=== PATIENT | female | born 1975 | race Asian ===

== ENCOUNTER 2017-01-20 20:06 | Emergency (ER) | payer SELFPAY ==
[~2017-01-20] VITALS: Ht 162.6 cm; Wt 76.5 kg
[~2017-01-20 20:06] MED LIST: CALC-649 PO; FERR27TA PO; IBUP-1542 PO; PREN1TAB49 PO
[2017-01-20 20:08] VITALS: Ht 162.6 cm; Wt 76.5 kg
--- NOTE | 2017-01-20 21:13 | ERD ---
ER Documentation Chief Complaint Date/Time DATE: 01/20/17 TIME: 21:00 Chief Complaint epigastric pain since this morning HPI 41-year-old female presents emergency department for epigastric pain since this morning. Pain was described as sharp that radiates to her left chest and left arm. A0. LMP was last month. Denies headache, dizziness, blurred vision, neck pain, back pain, nausea, vomiting, urinary symptoms, constipation, diarrhea, recent antibiotic use in the last 3 months, recent exposure to any illness, fever, chills. No known drug allergies. Past medical history of diabetes was diagnosed in 2010 , Gallstones without cholecystectomy. Medication: Denies. Social: Works as a caregiver. Denies smoking, use of alcohol, use of illegal drugs. ROS All systems reviewed and are negative except as per history of present illness. Medications Home Meds Active Scripts Ibuprofen* (Motrin*) 800 Mg Tab, 800 MG PO Q8 Y for PAIN AND OR ELEVATED TEMP, # 15 TAB Prov:PAULILABANNIURKAAR F 01/21/17 Famotidine* (Pepcid*) 20 Mg Tablet, 20 MG PO DAILY for 30 Days, TAB Prov:PAULILABANNIURKAAR F 01/21/17 Ibuprofen* (Motrin*) 600 Mg Tab, 600 MG PO Q6, #30 TAB Prov:CLIFTON GARZA MD 01/02/14 Reported Medications Ferrous Sulfate (Iron) 1 Tab Tablet, 1 TAB PO DAILY 02/24/12 Calcium Carbonate (Calcium) 1 Tab Tablet, 1 TAB PO DAILY 02/24/12 Vits W-Ca,Fe,Fa(<1MG) () 1 Tab Tablet, 1 TAB PO DAILY 02/24/12 Allergies Allergies: Coded Allergies: No Known Allergy (Unverified , 02/24/12) PMhx/Soc Medical and Surgical Hx: pt denies Surgical Hx History of Surgery: No Anesthesia Reaction: No Hx Neurological Disorder: No Hx Respiratory Disorders: No Hx Cardiac Disorders: No Hx Psychiatric Problems: Yes (ADHD) Hx Miscellaneous Medical Probl: No Hx Alcohol Use: No Hx Substance Use: No Hx Tobacco Use: No Smoking Status: Never smoker Physical Exam Vitals Vital Signs Date Time Temp Pulse Resp B/P Pulse Ox O2 Delivery O2 Flow Rate FiO2 01/21/17 01:16 78 18 131/76 99 Room Air 01/20/17 20:08 97.6 91 20 147/95 98 Physical Exam Const: [] Head: Atraumatic Eyes: Normal Conjunctiva ENT: Normal External Ears, Nose and Mouth. Neck: Full range of motion..~ No meningismus. Resp: Clear to auscultation bilaterally Cardio: Regular rate and rhythm, no murmurs Abd: Soft, non distended. Normal bowel sounds. Has epigastric tenderness on palpation. There is no right upper/right lower/left upper/left lower abdominal tenderness on palpation. Negative Rovsing sign. Negative [place] sign. Negative and psoas sign. Able to jump twice without developing right lower abdominal pain. No peritoneal signs. No CVA tenderness. Skin: No petechiae or rashes Back: No midline or flank tenderness Ext: No cyanosis, or edema Neur: Awake and alert Psych: Normal Mood and Affect Result Diagram: 01/20/17211001/20/172110 Results 24 hrs Laboratory Tests Test 01/20/17 21:10 01/20/17 21:11 Urine Color YELLOW Urine Clarity CLEAR Urine pH 5.0 Urine Specific [place] 1.032 Urine Ketones TRACEmg/dL Urine Nitrite NEGATIVEmg/dL Urine Bilirubin NEGATIVEmg/dL Urine Urobilinogen NEGATIVEmg/dL Urine Leukocyte Esterase NEGATIVELeu/ul Urine Hemoglobin NEGATIVEmg/dL Urine Glucose 3+mg/dL Urine Total Protein NEGATIVEmg/dl White Blood Count 10.510^3/ul Red Blood Count 5.2110^6/ul Hemoglobin 15.6g/dl Hematocrit 44.6% Mean Corpuscular Volume 85.6fl Mean Corpuscular Hemoglobin 29.9pg Mean Corpuscular Hemoglobin Concent 35.0g/dl Red Cell Distribution Width 11.5% Platelet Count 52233^3/UL Mean Platelet Volume 10.8fl Neutrophils % 53.6% Lymphocytes % 38.9% Monocytes % 4.6% Eosinophils % 1.7% Basophils % 0.5% Nucleated Red Blood Cells % 0.0/100WBC Neutrophils # 5.710^3/ul Lymphocytes # 4.110^3/ul Monocytes # 0.510^3/ul Eosinophils # 0.210^3/ul Basophils # 0.110^3/ul Nucleated Red Blood Cells # 0.010^3/ul Sodium Level 136mmol/L Potassium Level 4.5mmol/L Chloride Level 100mmol/L Carbon Dioxide Level 25mmol/L Anion Gap 16 Blood Urea Nitrogen 14mg/dl Creatinine 0.62mg/dl Glucose Level 255mg/dl Calcium Level 10.0mg/dl Total Bilirubin 0.3mg/dl Direct Bilirubin 0.00mg/dl Indirect Bilirubin 0.3mg/dl Aspartate Amino Transf (AST/SGOT) 28IU/L Alanine Aminotransferase (ALT/SGPT) 47IU/L Alkaline Phosphatase 108IU/L Troponin I < 0.012ng/ml Total Protein 8.2g/dl Albumin 4.4g/dl Globulin 3.80g/dl Albumin/Globulin Ratio 1.15 Amylase Level 74U/L Lipase 90U/L Procedures/MDM Examination: Please see physical examination. Disease process, medical treatment was explained to the patient and family member. They verbalized understanding and agreed with the diagnostic tests, medical treatment, and follow-up care. Radiology: Abdominal ultrasound: IMPRESSION: 1. Cholelithiasis. 2. Diffuse fatty infiltration of the liver with hepatomegaly. Chest x-ray: IMPRESSION: Mild atelectasis at the left lung base. Blood works: Reviewed. POC urine : Negative. Urinalysis: Reviewed. Treatment: Re-evaluation: Denies headache, dizziness, blurred vision, neck pain, shoulder pain, chest, abdominal pain, nausea, vomiting. There is no right upper/right lower/epigastric/left upper/left lower abdominal tenderness and likely palpation. Negative Rovsing sign. Negative [place] sign. Negative psoas sign. No episode of emesis in the emergency department. No CVA tenderness. No neurovascular deficits. No neurological deficits. Consultation: None. Differential diagnosis: Appendicitis versus cholecystitis versus pancreatitis versus diverticulitis versus diabetic ketoacidosis versus nephrolithiasis versus gastritis versus urinary tract infection Medical decision makin-year-old female presents emergency department for epigastric pain since this morning. Pain was described as sharp that radiates to her left chest and left arm. A0. LMP was last month. Patient's complaint, patient's history about her complaint, my physical findings, diagnostic test results, I consistent with my final diagnosis of cholelithiasis, hyperglycemia. Medications prescribed are the following: Pepcid. Motrin. Patient and family member are made aware of the side effects and adverse reactions of the medications prescribed. Instructed on when to seek emergent and medical attention in case allergic/anaphylactic reactions or severe side effects and or adverse reactions to medications. Patient and family member verbalized understanding. Patient instructed Instructed to follow-up with his PCP in 24-48 hours. Instructed to Call 911 for chest pain, shortness of breath. Advised to come back here in ED as soon as possible for severity of symptoms which includes but not limited to: any new symptoms; shortness of breath/difficulty of breathing; cardiovascular changes; severe gastrointestinal symptoms; signs and symptoms of bleeding and or infection; signs of compartment syndrome/neurovascular changes; neurological changes/deficits. Patient and family member verbalized understanding. Upon discharge, patient is alert and oriented x 4, speaks full and clear sentences, denies pain, has no neurological deficits, has no neurovascular deficits, difficulty of breathing. Breathing even and unlabored. Lung sounds are clear to auscultation. Not in distress. Appears comfortable. Ambulatory with steady gait. Appears satisfied with care provided here in ED. Departure Diagnosis: Primary Impression: Epigastric pain Additional Impressions: Hyperglycemia Cholelithiasis Condition: Stable Additional Instructions: Instructed to follow-up with his PCP in 24-48 hours. Instructed to Call 911 for chest pain, shortness of breath. Advised to come back here in ED as soon as possible for severity of symptoms which includes but not limited to: any new symptoms; shortness of breath/difficulty of breathing; cardiovascular changes; severe gastrointestinal symptoms; signs and symptoms of bleeding and or infection; signs of compartment syndrome/neurovascular changes; neurological changes/deficits. Patient and family member verbalized understanding. YA WORTHINGTON Jan 20, 2017 21:13
[2017-01-20 21:22] LABS: BASOPHIL # 0.1 10^3/ul (0.0-0.1); BASOPHILS % 0.5 % (0.0-2.0); EOSINOPHILS # 0.2 10^3/ul (0.0-0.5); EOSINOPHILS % 1.7 % (0.0-7.0); HEMATOCRIT 44.6 % (37.0-47.0); HEMOGLOBIN 15.6 g/dl (12.0-16.0); LYMPHOCYTES # 4.1 10^3/ul (0.8-2.9); LYMPHOCYTES % 38.9 % (15.0-51.0); MEAN CORPUSCULAR HEMOGLOBIN 29.9 pg (29.0-33.0); MEAN CORPUSCULAR VOLUME 85.6 fl (82.0-101.0); MEAN PLATELET VOLUME 10.8 fl (7.4-10.4); MONOCYTE # 0.5 10^3/ul (0.3-0.9); MONOCYTES % 4.6 % (0.0-11.0); NEUTROPHIL # 5.7 10^3/ul (1.6-7.5); NEUTROPHILS % 53.6 % (39.0-77.0); PLATELET COUNT 314 10^3/UL (140-415); RED BLOOD COUNT 5.21 10^6/ul (4.20-5.40); RED CELL DISTRIBUTION WIDTH 11.5 % (11.5-14.5); WHITE BLOOD COUNT 10.5 10^3/ul (4.8-10.8)
[2017-01-20 21:47] LABS: ADD UMIC NO; UR ASCORBIC ACID NEGATIVE (NEGATIVE); UR BILIRUBIN (Dip) NEGATIVE (NEGATIVE); UR BLOOD (Dip) NEGATIVE (NEGATIVE); UR CLARITY CLEAR (CLEAR); UR COLOR YELLOW (YELLOW); UR GLUCOSE (Dip) 3+ mg/dL (NEGATIVE); UR KETONES (Dip) TRACE mg/dL (NEGATIVE); UR LEUKOCYTE ESTERASE (Dip) NEGATIVE Leu/ul (NEGATIVE); UR NITRITE (Dip) NEGATIVE (NEGATIVE); UR SPECIFIC GRAVITY (Dip) 1.032 (1.003-1.030); UR TOTAL PROTEIN (Dip) NEGATIVE (NEGATIVE); UR UROBILINOGEN (Dip) NEGATIVE (NEGATIVE)
[2017-01-20 21:49] LABS: ALANINE AMINOTRANSFERASE 47 IU/L (13-69); ALBUMIN 4.4 g/dl (3.3-4.9); ALBUMIN/GLOBULIN RATIO 1.15; ALKALINE PHOSPHATASE 108 IU/L (42-121); AMYLASE 74 U/L (11-123); ANION GAP 16 (8-16); ASPARTATE AMINO TRANSFERASE 28 IU/L (15-46); BILIRUBIN,INDIRECT 0.3 mg/dl (0-1.1); BILIRUBIN,TOTAL 0.3 mg/dl (0.2-1.3); BLOOD UREA NITROGEN 14 mg/dl (7-20); CARBON DIOXIDE 25 mmol/L (21-31); CHLORIDE 100 mmol/L (97-110); CREATININE 0.62 mg/dl (0.44-1.00); GLUCOSE 255 mg/dl (70-220); POTASSIUM 4.5 mmol/L (3.5-5.1); SODIUM 136 mmol/L (135-144); TOTAL PROTEIN 8.2 g/dl (6.1-8.1)
[2017-01-20 22:02] LABS: TROPONIN-I < 0.012 ng/ml (0.00-0.12)
--- NOTE | 2017-01-20 23:04 | RADRPT ---
PROCEDURE: XR Chest. CLINICAL INDICATION: Chest pain TECHNIQUE: PA and Lateral views of the chest were obtained. COMPARISON: None. FINDINGS: The cardiomediastinal silhouette is within normal limits. Mild atelectasis at the left lung base. Th e lungs are otherwise clear. No signs of pleural fluid or pneumothorax are seen. The osseous structu res and soft tissues are unremarkable. IMPRESSION: Mild atelectasis at the left lung base. RPTAT: [facility] Physician Cameron Date Time Electronically viewed and signed by Physician Cameron on 01/20/2017 23:03 RS/
--- NOTE | 2017-01-20 23:27 | RADRPT ---
PROCEDURE: US Abdomen Limited. CLINICAL INDICATION: Abdominal pain TECHNIQUE: Multiple real-time longitudinal and transverse images were acquired of the patient's [facility] abdomen and retroperitoneum utilizing a curved array transducer. COMPARISON: None FINDINGS: Pancreas: The pancreas is suboptimally visualized in the tail. There is no significant abnormality in the visualized portion. The main pancreatic duct is not dilated. Liver: There is diffuse increased echogenicity of the liver with a coarse echotexture. The right he patic lobe measures 21.3 cm craniocaudal, which is enlarged. There is no definite focal lesion visua lized in the liver. Bile ducts: The intrahepatic bile ducts are not dilated. Common bile duct measures 2 mm in diamete r, within normal limits. Gallbladder: There are several dependent gallstones within the gallbladder with posterior shadowing . The gallstones measure up to 1.1 cm in diameter. There is no wall thickening, pericholecystic flui d, or sonographic Garcia's sign. Kidneys: The right kidney measures 9.3 x 4.0 x 5.2 cm. The parenchymal echogenicity and thickness a ppear within normal range. No focal lesions are visualized. No hydronephrosis. There is no ascites visualized in the right abdomen. RPTAT: ZZ IMPRESSION: 1. Cholelithiasis. 2. Diffuse fatty infiltration of the liver with hepatomegaly. .Jyothi Scott MD, MD Date Time Electronically viewed and signed by .Jyothi Scott MD, MD on 01/20/2017 23:26 .T/
[2017-01-21] MEDS ORDERED: FAMO-96 PO (00:04)
[2017-01-21] MEDS ORDERED: IBUP800T25 PO (00:05)
[2017-01-21 01:16] VITALS: BP 131/76; PULSE 78; RESP 18
== END 2017-01-21 01:17 | disposition home or self-care (01) ==
LOC: FTE 20:06
DX: R73.9 Hyperglycemia, unspecified (principal); K80.20 Calculus of gallbladder without cholecystitis without obstruction
CPT/HCPCS: 71020; 76705; 80053; 81003; 82150; 83690; 84484; 85025; 93005